=== PATIENT | male | born 1980 | race Caucasian/White ===

== ENCOUNTER 2023-01-15 11:43 | Emergency (ER) | payer SELFPAY ==
[2023-01-15 12:09] VITALS: BP 124/68; PULSE 61; RESP 15; TEMP 36.8; O2SAT 100; BMI 26.4
--- NOTE | 2023-01-15 12:29 | W.ED.WOUNDLC ---
HPI - Wound/Laceration General: Chief Complaint: Extremity Injury, Upper Stated Complaint: left arm lac Time Seen by Provider: 01/15/23 12:18 Source: patient Mode of arrival: ambulatory Limitations: no limitations History of Present Illness: Patient is a 42-year-old male presents to ED today for evaluation and treatment of a left arm laceration that he sustained just prior to arrival at work when he struck the extremity on an exposed nail. Tetanus is up-to-date. Onset (ago): hour(s) Extremity Location: Left: forearm Place: work Patient tetanus UTD: Yes Context: accidental Associated symptoms: Reports no associated symptoms Review of Systems Skin/Breast: Reports: other (Laceration to left forearm) Neuro: Denies: numbness in extremities or sensory changes Physical Exam Const: COMMON NORMALS: no acute distress, average body habitus, patient oriented x3, no limitations, healthy appearing, alert and well nourished Extremity: EXTREMITY IMAGE (FRONT): 1. 8.5 cm laceration not extending past subcutaneous tissues. No bleeding. Full painless motion of the elbow Neuro: COMMON NORMALS: patient oriented x3, moves all extremities, no focal motor deficits and no sensory deficits noted SENSORIUM/ORIENTATION: Yes alert Skin: TRAUMA: laceration Procedures Laceration Laceration 1: Site: upper extremity Side (If applicable): left Size (cm): 8.5 Description: linear Depth: simple, single layer Local Anesthetic: lidocaine 1% Amount of anesthesia used (mL): 4.0 Pre-repair: wound explored and irrigated extensively Skin layer closed with: nylon Size (cm): 4-0 Number of sutures: 11 Technique: simple, interrupted Course Vital Signs: Vital signs: Vital Signs Temperature 98.2 F 01/15/23 12:09 Pulse Rate 61 01/15/23 12:09 Respiratory Rate 15 01/15/23 12:09 Blood Pressure 124/68 01/15/23 12:09 Pulse Oximetry 100 01/15/23 12:09 Oxygen Delivery Me thod Room Air 01/15/23 12:09 MDM - Wound/Laceration Medical Decision Making Laceration was copiously irrigated and repaired as documented. Tetanus is up-to-date. Wound care and infection precautions discussed. Discharge Plan Discharge Patient Disposition: Home Clinical Impression: Laceration of left forearm Qualifiers: Encounter type: initial encounter Qualified Code(s): S51.812A - Laceration without foreign body of left forearm, initial encounter Condition: Stable Discharge Orders: Discharge ED (Routine); Ordered 01/15/23 Ordered By: Lis Deng Patient Instructions: Care For Your Stitches (DC), Laceration (DC) Activity Restrictions/Additional Instructions: Keep wound/laceration clean with warm soap and water twice daily. Monitor for signs of infection such as redness, swelling, increased pain, or drainage. Please seek medical re-evaluation if these occur. If you received sutures today these will need to be removed (unless you were told by the provider that they are absorbable). The provider should have discussed with you the length of time until removal-10 DAYS. You may return to the emergency department for this service. 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
--- NOTE | 2023-01-21 14:52 | DCPLANNER ---
business services manager called patient due to no primary care physician - no answer at this time.
== END 2023-01-15 13:57 | disposition home or self-care (01) ==
PROVIDERS: Emergency Provider Physician Assistant
DX: S51.812A Laceration without foreign body of left forearm, initial encounter (principal); W26.8XXA Contact with other sharp object(s), not elsewhere classified, initial encounter
CPT/HCPCS: 12004; 99282

== ENCOUNTER 2024-06-10 06:04 | Emergency (ER) | payer SELFPAY ==
[2024-06-10 06:08] VITALS: BP 143/63; PULSE 72; RESP 16; TEMP 36.7; O2SAT 98; BMI 27.0
--- NOTE | 2024-06-10 06:11 | ED_ITS ---
HPI - General Adult 2 General: Chief complaint: Skin/Abscess/Foreign Body Stated complaint: spot on back w/pain Time Seen by Provider: 06/10/24 06:10 History of Present Illness: 43-year-old male presents emergency room complaining of particular spot on his back with pain. Area is swollen and inflamed has made some attempts at draining it but has not been successful. Associated symptoms: Deny rash Related Data Previous Rx's Medication Instructions Recorded diclofenac sodium 75 mg 75 mg PO Q12H PRN pain #20 tabs 06/10/24 tablet,delayed release sulfamethoxazole 800 2 tab PO BID 7 days #28 tabs 06/10/24 mg-trimethoprim 160 mg tablet (Bactrim DS) Allergies Allergy/AdvReac Type Severity Reaction Status Date / Time No Known Allergies Allergy Unverified 06/10/24 07:26 Review of Systems 2 Const: Denies: fever(s) or chills Skin/Breast: Denies: rash Physical Exam 2 Const: COMMON NORMALS: no acute distress GENERAL APPEARANCE: cooperative and comfortable ORIENTATION/CONSCIOUSNESS: Yes awake, Yes oriented to person, Yes oriented to place and Yes oriented to time HENMT: COMMON NORMALS: normocephalic, atraumatic and hearing grossly normal bilaterally HEAD & SCALP: normocephalic and atraumatic Resp: COMMON NORMALS: normal respiratory effort, No retractions, No use of accessory muscles and clear to auscultation bilaterally AUSCULTATION: clear to auscultation bilaterally Cardio: COMMON NORMALS: regular rate, regular rhythm and No murmurs present (Cardio) RATE: regular rate RHYTHM: regular rhythm Neuro: SENSORIUM/ORIENTATION: Yes oriented to person, Yes oriented to place and Yes oriented to time Skin: OTHER: Large carbuncle on patient's mid thoracic spine just to the left of the midline. It is warm to the touch localized erythema and induration. Procedures Abscess I/D Site: back Side (if applicable): left Local Anesthetic: lidocaine 1% and with epi Amount of anesthesia used (mL): 10 Technique: incised with #11 blade Amount of fluid expressed (mL): 100 Irrigation: Yes Packing used?: plain Course 2 Vital Signs: Vital signs: Vital Signs Temperature 98.1 F 06/10/24 06:08 Pulse Rate 55 L 06/10/24 07:28 Respiratory Rate 16 06/10/24 06:08 Blood Pressure 107/76 06/10/24 07:28 Pulse Oximetry 97 06/10/24 07:28 MDM - General Adult Medical Decision Making Abscess incised and drained with an 11 blade scalpel wound drained and then decorticated with a combination of blunt and sharp dissection. Wound culture done wound packed with half-inch iodoform gauze. Patient advised to have a gauze changed tomorrow in outpatient setting. Also started on Bactrim 2 tablets twice daily. Also encouraged patient to follow-up with general surgery he has a another carbuncle that is not acutely infected several centimeters inferior to this 1 they are not fistulous at this time. Encouraged him to have this removed before it becomes infected. Lab Data I reviewed the patient's lab results. 06/10/24 06:19 06/10/24 06:19 Laboratory Results WBC 11.50 10^3/uL (3.29-11.43) H 06/10/24 06:19 RBC 5.75 10^6/uL (3.85-5.65) H 06/10/24 06:19 Hgb 17.20 g/dL (11.27-16.99) H 06/10/24 06:19 Hct 50.6 % (37-53) 06/10/24 06:19 MCV 88.0 fl (82-101) 06/10/24 06:19 MCH 29.9 pg (27-33) 06/10/24 06:19 MCHC 34.0 g/dL (30-55) 06/10/24 06:19 RDW 12.9 % (12.1-15.1) 06/10/24 06:19 Plt Count 185 10^3/cmm (157-399) 06/10/24 06:19 MPV 10.2 fL (7.4-10.4) 06/10/24 06:19 Neut % (Auto) 69.5 % 06/10/24 06:19 Lymph % (Auto) 19.0 % 06/10/24 06:19 [place] % (Auto) 9.2 % 06/10/24 06:19 Eos % (Auto) 1.6 % 06/10/24 06:19 Baso % (Auto) 0.4 % 06/10/24 06:19 Neut # (Auto) 7.99 10^3/uL (1.8-7.7) H 06/10/24 06:19 Lymph # (Auto) 2.2 10^3/uL (0.8-4.8) 06/10/24 06:19 [place] # (Auto) 1.1 10^3/uL (0.2-0.9) H 06/10/24 06:19 Eos # (Auto) 0.2 10^3/uL (0.0-0.8) 06/10/24 06:19 Baso # (Auto) 0.1 10^3/uL (0.0-0.1) 06/10/24 06:19 Nucleated RBC % (auto) 0 % 06/10/24 06:19 Nucleated RBCs # 0.0 /100WBC 06/10/24 06:19 Sodium 136 mmol/L (136-145) 06/10/24 06:19 Potassium 3.5 mmol/L (3.5-5.1) 06/10/24 06:19 Chloride 99 mmol/L (98-107) 06/10/24 06:19 Carbon Dioxide 25 mmol/L (22-29) 06/10/24 06:19 Anion Gap 15.5 (5-19) 06/10/24 06:19 BUN 9 mg/dL (6-20) 06/10/24 06:19 Creatinine 0.9 mg/dL (0.7-1.2) 06/10/24 06:19 GFR Calculation 92.1 mL/min (90-130) 06/10/24 06:19 Glucose 141 mg/dL (65-115) H 06/10/24 06:19 Calculated Osmolality 283 mOsm/kg (285-295) L 06/10/24 06:19 Calcium 8.7 mg/dL (8.5-10.5) 06/10/24 06:19 Total Bilirubin 0.7 mg/dL (0.15-1.2) 06/10/24 06:19 AST 25 U/L (0-40) 06/10/24 06:19 ALT 28 U/L (0-41) 06/10/24 06:19 Alkaline Phosphatase 71 U/L (40-130) 06/10/24 06:19 Total Protein 7.6 g/dL (6.6-8.7) 06/10/24 06:19 Albumin 4.2 g/dL (3.5-5.2) 06/10/24 06:19 Globulin 3.4 g/dL (1.3-4.6) 06/10/24 06:19 No radiology studies performed this visit Discharge Plan Discharge Patient Disposition: Home Clinical Impression: Abscess of skin or subcutaneous tissue Condition: Stable Prescriptions: New diclofenac sodium 75 mg tablet,delayed release (DR/EC) 75 mg PO Q12H PRN (Reason: pain) Qty: 20 0RF sulfamethoxazole-trimethoprim [Bactrim DS] 800-160 mg tablet 2 tab PO BID 7 Days Qty: 28 0RF Discharge Orders: Discharge ED (Routine); Ordered 06/10/24 Ordered By: Guerrero Muller Discharge Diet: Usual diet Discharge Activity: Resume usual activity Patient Instructions: Opioid Safety, Pain Management Activity Restrictions/Additional Instructions: Thank you for choosing [facility] for your healthcare needs today. It is very important that you follow up as instructed or that you return to the Emergency Department should you have concerns or if your condition changes or worsens in any way. You are seen today with an abscess in your back it was incised and drained. There is wound packing in place that should be replaced tomorrow you are given diclofenac for pain you are also given an antibiotic take 2 tablets twice a day for 7 days. The packing likely have to be changed several times over the course of the next week. Expect the wound to drain fairly significantly even the first couple of days. Additionally you have an adjacent sebaceous cyst that is not infected that would recommend you follow-up with general surgery to have it excised before it becomes infected and causes more pain. 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
[2024-06-10 06:34] LABS: Basophils # 0.1 10^3/uL (0.0-0.1); Basophils % 0.4 %; Eosinophils # 0.2 10^3/uL (0.0-0.8); Eosinophils % 1.6 %; Hematocrit 50.6 % (37-53); Lymphocytes # 2.2 10^3/uL (0.8-4.8); Mean Corpuscular Hemoglobin 29.9 pg (27-33); Mean Platelet Volume 10.2 fL (7.4-10.4); Monocytes # 1.1 10^3/uL (0.2-0.9); Monocytes % 9.2 %; Neutrophils # 7.99 10^3/uL (1.8-7.7); Neutrophils % 69.5 %; Nucleated Red Blood Cells % 0 %; Platelet Count 185 10^3/cmm (157-399); Red Blood Count 5.75 10^6/uL (3.85-5.65); Red Cell Distribution Width 12.9 % (12.1-15.1)
[2024-06-10] MEDS: ketorolac 30 mg/mL INJ IVP (06:35)
[2024-06-10] MEDS: ondansetron 2 mg/ML SDV 2 mL 4 MG IVP (06:36)
[2024-06-10 07:05] LABS: Alanine Aminotransferase 28 U/L (0-41); Albumin Level 4.2 g/dL (3.5-5.2); Alkaline Phosphatase 71 U/L (40-130); Aspartate Amino Transferase 25 U/L (0-40); Blood Urea Nitrogen 9 mg/dL (6-20); Calcium 8.7 mg/dL (8.5-10.5); Carbon Dioxide 25 mmol/L (22-29); Chloride 99 mmol/L (98-107); Creatinine Clr Calc Pharmacy 127.4388; Globulin 3.4 g/dL (1.3-4.6); Glomerular Filtration Rate 92.1 mL/min (90-130); Glucose 141 mg/dL (65-115); Osmolality Calculated 283 mOsm/kg (285-295); Sodium 136 mmol/L (136-145); Total Bilirubin 0.7 mg/dL (0.15-1.2); Total Protein 7.6 g/dL (6.6-8.7)
[2024-06-10 07:06] LABS: Anion Gap 15.5 (5-19); Potassium 3.5 mmol/L (3.5-5.1)
[2024-06-10 07:26] VITALS: BP 107/76; PULSE 57; O2SAT 96
[2024-06-10 07:28] VITALS: BP 107/76; PULSE 55; O2SAT 97
--- NOTE | 2024-06-11 01:53 | DCPLANNER ---
message sent to general surgery -
[2024-06-11 03:39] LABS: Bacillus cereus group Not Detected (NOT DETECT); Bacillus subtillis group Detected (NOT DETECT); Corynebacterium Not Detected (NOT DETECT); Cutibacterium acnes (P.acnes) Not Detected (NOT DETECT); Enterococcus Not Detected (NOT DETECT); Enterococcus faecalis Not Detected (NOT DETECT); Enterococcus faecium Not Detected (NOT DETECT); Lactobacillus species Not Detected (NOT DETECT); Listeria Not Detected (NOT DETECT); Listeria monocytogenes Not Detected (NOT DETECT); Micrococcus Not Detected (NOT DETECT); Pan Candida Not Detected (NOT DETECT); Pan Gram-Negative Not Detected (NOT DETECT); Staphylococcus epidermidis Not Detected (NOT DETECT); Staphylococcus lugdunensis Not Detected (NOT DETECT); Staphylococcus species Not Detected (NOT DETECT); Streptococcus agalactiae Not Detected (NOT DETECT); Streptococcus anginosus group Not Detected (NOT DETECT); Streptococcus pneumoniae Not Detected (NOT DETECT); Streptococcus pyogenes Not Detected (NOT DETECT); Streptococcus species Not Detected (NOT DETECT)
== END 2024-06-10 07:26 | disposition home or self-care (01) ==
PROVIDERS: Emergency Provider Family Medicine
DX: L02.212 Cutaneous abscess of back [any part, except buttock and flank] (principal)
CPT/HCPCS: 10060; 80053; 85025; 87040; 87070; 87075; 87150; 87205; 96374; 96375; 99284; J1885; J2405